=== PATIENT | male | born 1965 | race Caucasian/White ===

== ENCOUNTER 2019-02-21 10:51 | Emergency (ER) | payer SELFPAY ==
[~2019-02-21] VITALS: Wt 65.0 kg
[2019-02-21 10:54] VITALS: Wt 65.0 kg
[2019-02-21] MEDS ORDERED: OLANZAPINE 5 MG TAB PO ONE (12:30)
--- NOTE | 2019-02-21 14:00 | PSY ---
Date/Time of Note Date/Time of Note DATE: 02/21/19 TIME: 16:54 Psychiatric Subjective Eval Consent Pt consented to telemedicine: Yes Subjective Evaluation Patient location: emergency Chief Complaint: PT JUMPED OUT 2ND STORY WINDOW WITH KNIFE AND BAT, HALLUCINATIONS History of present illness HPI: 53 yo male (interview done with [place]de[place] pediatric speech language pathologist) with ho methamphetamine use, bib 911 after pt jumped out of 2nd story window with knife and bat in hand. pt reports "bandits" are after him and he was trying to flee from them. Says they are monitoring him via drone he has been "flashing light at it" which began today's incident. Nurse confirms hx from 911 and also reports that pt wrote "call 911" on the window. Pt also reports they broke into his house to get after him. Admits to using methamphetamine. Denies si. Past psych Hx: denies ho psych admits or suicide attempts PMHx: denies meds: none nkda MSE: casually groomed, cooperative, normal [place] speech, euthymic, restricted affect, somewhat disorganized, + delusions denies avh denies si/hi, poor insight Imp 53 yo male very psychotic to the point of being gravely disabled, unable to distinguish reality from psychosis to the point of jumping out of 2nd story 5150 psych admit For moderate agitation Zyprexa 5mg po prn For severe agitation chlorpromazine 25mg im prn Allergies: Coded Allergies: No Known Allergy (Unverified , 02/21/19) Psychiatric Objective Eval Mental Status Examination: Laboratory Results Laboratory Tests Test 02/21/19 11:40 02/21/19 11:54 White Blood Count 8.5 10^3/ul Red Blood Count 4.45 10^6/ul Hemoglobin 13.9 g/dl Hematocrit 41.0 % Mean Corpuscular Volume 92.1 fl Mean Corpuscular Hemoglobin 31.2 pg Mean Corpuscular Hemoglobin Concent 33.9 g/dl Red Cell Distribution Width 12.4 % Platelet Count 278 10^3/UL Mean Platelet Volume 9.1 fl Immature Granulocytes % 0.200 % Neutrophils % 74.7 % Lymphocytes % 16.8 % Monocytes % 6.8 % Eosinophils % 1.1 % Basophils % 0.4 % Nucleated Red Blood Cells % 0.0 /100WBC Immature Granulocytes # 0.020 10^3/ul Neutrophils # 6.4 10^3/ul Lymphocytes # 1.4 10^3/ul Monocytes # 0.6 10^3/ul Eosinophils # 0.1 10^3/ul Basophils # 0.0 10^3/ul Nucleated Red Blood Cells # 0.0 10^3/ul Sodium Level 141 mmol/L Potassium Level 3.8 mmol/L Chloride Level 107 mmol/L Carbon Dioxide Level 23 mmol/L Anion Gap 11 Blood Urea Nitrogen 20 mg/dl Creatinine 1.00 mg/dl Est Glomerular Filtrat Rate mL/min > 60 mL/min Glucose Level 93 mg/dl Calcium Level 9.7 mg/dl Total Bilirubin 0.9 mg/dl Direct Bilirubin 0.00 mg/dl Indirect Bilirubin 0.9 mg/dl Aspartate Amino Transf (AST/SGOT) 36 IU/L Alanine Aminotransferase (ALT/SGPT) 25 IU/L Alkaline Phosphatase 94 IU/L Total Protein 8.0 g/dl Albumin 4.7 g/dl Globulin 3.30 g/dl Albumin/Globulin Ratio 1.42 Salicylates Level < 1.0 mg/dl Acetaminophen Level < 10.0 ug/ml Ethyl Alcohol Level < 10.0 mg/dl Urine Color LAURA Urine Clarity SLIGHTLY CLOUDY Urine pH 5.0 Urine Specific [place] 1.029 Urine Ketones TRACE mg/dL Urine Nitrite NEGATIVE mg/dL Urine Bilirubin NEGATIVE mg/dL Urine Urobilinogen 1+ mg/dL Urine Leukocyte Esterase NEGATIVE Alix/ul Urine Microscopic RBC 3 /HPF Urine Microscopic WBC 1 /HPF Urine Squamous Epithelial Cells FEW /HPF Urine Mucus FEW /HPF Urine Hemoglobin NEGATIVE mg/dL Urine Glucose NEGATIVE mg/dL Urine Total Protein NEGATIVE mg/dl Urine Opiates Screen Negative Urine Barbiturates Negative Urine Amphetamines Screen POSITIVE Urine Benzodiazepines Screen Negative Urine Cocaine Screen Negative Urine Cannabinoids Negative Assessment and Plan Recommendation/Plan Multiple antipsychotics: No Discharge Disposition: Psychiatric inpatient Legal Status: Place involuntary hold GALINA PRIDE Feb 21, 2019 14:00
--- NOTE | 2019-02-21 14:04 | ERD ---
ER Documentation Chief Complaint Chief Complaint PT JUMPED OUT 2ND STORY WINDOW WITH KNIFE AND BAT, HALLUCINATIONS HPI This is a 53-year-old male with a history of amphetamine abuse who presents to the emergency room with [employer] for evaluation of suicidal ideation. A detailed history is unobtainable from the patient given his clinical condition. This patient was found to have jumped off of a second story patio at his living faci [facility] and I did have a knife on his possession, and a baseball on his possession. He denies any homicidal ideation at this time but that he has been feeling depressed and has been hearing voices that are telling him to kill himself. ROS All systems reviewed and are negative except as per history of present illness. Medications Home Meds Unable to Obtain Active Prescriptions or Reported Meds Allergies Allergies: Coded Allergies: No Known Allergy (Unverified , 02/21/19) PMhx/Soc Medical and Surgical Hx: pt denies Surgical Hx Hx Psychiatric Problems: Yes (paranoid shizophrenia) Hx Alcohol Use: No Hx Substance Use: Yes (crystal meth) Hx Tobacco Use: No Smoking Status: Light tobacco smoker Physical Exam Vitals Vital Signs Date Temp Pulse Resp B/P (MAP) Pulse Ox O2 O2 Flow FiO2 Time Delivery Rate 02/21/19 98.1 80 20 130/65 98 10:54 (86) Physical Exam INITIAL VITAL SIGNS: Reviewed by me GENERAL: The patient is disheveled in appearance HEENT: Dry mucous membranes, pupils equal, round, and reactive to light. EOMI. There is no scleral icterus. NECK: C-spine is soft and supple, there is no meningismus. There is no cervical lymphadenopathy. LUNGS: Clear to auscultation bilaterally. There are no rales, wheezes or rhonchi. HEART: Regular rate and rhythm, no murmurs, clicks, rubs or gallops. ABDOMEN: Soft, non-tender, non-distended. There are bowel sounds in all four quadrants. No rebound or guarding. EXTREMITIES: There is no peripheral cyanosis or edema. No focal swelling or erythema. NEUROLOGICAL: The patient moves all four extremities with 5/5 strength. Cranial nerves II - XII are intact. Normal gait. Alert and oriented SKIN: There is no apparent rash or petechiae. HEME/LYMPHATIC: There is no evidence of excessive bruising or lymphedema. PSYCHIATRIC: The patient appear to be agitated Result Diagram: 02/21/19 1140 02/21/19 1140 Results 24 hrs Laboratory Tests Test 02/21/19 11:40 02/21/19 11:54 White Blood Count 8.5 10^3/ul Red Blood Count 4.45 10^6/ul Hemoglobin 13.9 g/dl Hematocrit 41.0 % Mean Corpuscular Volume 92.1 fl Mean Corpuscular Hemoglobin 31.2 pg Mean Corpuscular Hemoglobin Concent 33.9 g/dl Red Cell Distribution Width 12.4 % Platelet Count 278 10^3/UL Mean Platelet Volume 9.1 fl Immature Granulocytes % 0.200 % Neutrophils % 74.7 % Lymphocytes % 16.8 % Monocytes % 6.8 % Eosinophils % 1.1 % Basophils % 0.4 % Nucleated Red Blood Cells % 0.0 /100WBC Immature Granulocytes # 0.020 10^3/ul Neutrophils # 6.4 10^3/ul Lymphocytes # 1.4 10^3/ul Monocytes # 0.6 10^3/ul Eosinophils # 0.1 10^3/ul Basophils # 0.0 10^3/ul Nucleated Red Blood Cells # 0.0 10^3/ul Sodium Level 141 mmol/L Potassium Level 3.8 mmol/L Chloride Level 107 mmol/L Carbon Dioxide Level 23 mmol/L Anion Gap 11 Blood Urea Nitrogen 20 mg/dl Creatinine 1.00 mg/dl Est Glomerular Filtrat Rate mL/min > 60 mL/min Glucose Level 93 mg/dl Calcium Level 9.7 mg/dl Total Bilirubin 0.9 mg/dl Direct Bilirubin 0.00 mg/dl Indirect Bilirubin 0.9 mg/dl Aspartate Amino Transf (AST/SGOT) 36 IU/L Alanine Aminotransferase (ALT/SGPT) 25 IU/L Alkaline Phosphatase 94 IU/L Total Protein 8.0 g/dl Albumin 4.7 g/dl Globulin 3.30 g/dl Albumin/Globulin Ratio 1.42 Salicylates Level < 1.0 mg/dl Acetaminophen Level < 10.0 ug/ml Ethyl Alcohol Level < 10.0 mg/dl Urine Color LAURA Urine Clarity SLIGHTLY CLOUDY Urine pH 5.0 Urine Specific [place] 1.029 Urine Ketones TRACE mg/dL Urine Nitrite NEGATIVE mg/dL Urine Bilirubin NEGATIVE mg/dL Urine Urobilinogen 1+ mg/dL Urine Leukocyte Esterase NEGATIVE Alix/ul Urine Microscopic RBC 3 /HPF Urine Microscopic WBC 1 /HPF Urine Squamous Epithelial Cells FEW /HPF Urine Mucus FEW /HPF Urine Hemoglobin NEGATIVE mg/dL Urine Glucose NEGATIVE mg/dL Urine Total Protein NEGATIVE mg/dl Urine Opiates Screen Negative Urine Barbiturates Negative Urine Amphetamines Screen POSITIVE Urine Benzodiazepines Screen Negative Urine Cocaine Screen Negative Urine Cannabinoids Negative Current Medications Medications Dose Sig/Gallito Start Time Status Last (Trade) Ordered Route PRN Stop Time Admin Dose Reason Admin Olanzapine 10 mg ONCE ONCE 02/21/19 DC 02/21/19 (Zyprexa) PO 12:30 02/21/19 13:27 12:31 Procedures/MDM This is a 53-year-old male presents the ER for evaluation of agitation after jumping off a second story patio to kill himself. The patient did state he smoked amphetamines 2 days ago and states that he is hearing voices telling him to kill himself. The patient did have a positive amphetamine screen in the ER. He was given Zyprexa for mild agitation. Lab work is within normal limits and he was evaluated by tele-psych he does recommend a 50 1 50 hold. The patient will be observed in the emergency room until we are able to find a facility who can accept this patient. Patient presents with symptomatology consistent with the decompensation of previously diagnosed psychiatric disease. Based on history, physical exam and appropriate lab tests, I appreciate no evidence of significant life-threatening injury or illness that includes a psychiatric hospitalization. Patient is thus "medically clear" for psychiatric admission. In regards to the psychiatric complaints, this patient has clear evidence of high risk psychiatric symptoms with significant risk for decompensation, thus requiring admission to the hospital for stabilization. Departure Diagnosis: Primary Impression: Suicide attempt Additional Impressions: Amphetamine abuse Auditory hallucinations Condition: SINCERE London DO Feb 21, 2019 14:04
--- NOTE | 2019-02-22 10:13 | EN ---
Date/Time of Note Date/Time of Note DATE: 02/22/19 TIME: 10:13 ER Progress Note Observation Note: Time: 4 hours Family Hx: No Hypertension Evaluation: Patient remains calm at this time with no signs of behavior escalation. We are still attempting to contact facilities to provide placement for this patient at this time. Patient has eaten food, no acute distress and no complaints at this time SINCERE SMALL DO Feb 22, 2019 10:13
--- NOTE | 2019-02-22 13:31 | PSY ---
Date/Time of Note Date/Time of Note DATE: 02/22/19 TIME: 16:31 Psychiatric Subjective Eval Consent Pt consented to telemedicine: Yes Subjective Evaluation Patient location: emergency Chief Complaint: PT JUMPED OUT 2ND STORY WINDOW WITH KNIFE AND BAT, HALLUCINATIONS Reason for consult: Hallucinatios History of present illness HPI: 53 yo male (interview done with slovenian russian language professor). Seen by this MD yesterday. Per that note, " with ho methamphetamine use, bib 911 after pt jumped out of 2nd story window with knife and bat in hand. pt reports "bandits" are after him and he was trying to flee from them. Says they are monitoring him via drone he has been "flashing light at it" which began today's incident. Nurse confirms hx from 911 and also reports that pt wrote "call 911" on the window. Pt also reports they broke into his house to get after him. Admits to using methamphetamine. Denies si. " MD saw pt agian today with slovenian russian language professor. Hx as above. Still very delusional and paranoid. No insight. Past psych Hx: denies ho psych admits or suicide attempts PMHx: denies meds: none nkda MSE: casually groomed, cooperative, normal slovenian speech, euthymic, restricted affect, somewhat disorganized, + delusions denies avh denies si/hi, poor insight Imp 53 yo male very psychotic to the point of being gravely disabled, unable to distinguish reality from psychosis to the point of jumping out of 2nd story 5150 psych admit For moderate agitation Zyprexa 5mg po prn For severe agitation chlorpromazine 25mg im prn Hospitalization: no Medical history Problems Medical Problems: (1) Amphetamine abuse Status: Acute (2) Auditory hallucinations Status: Acute (3) Suicide attempt Status: Acute Allergies: Coded Allergies: No Known Allergy (Unverified , 02/21/19) Social History DPA/Conservatorship: No Psychiatric Objective Eval Mental Status Examination: Laboratory Results Laboratory Tests Test 02/21/19 11:40 02/21/19 11:54 White Blood Count 8.5 10^3/ul Red Blood Count 4.45 10^6/ul Hemoglobin 13.9 g/dl Hematocrit 41.0 % Mean Corpuscular Volume 92.1 fl Mean Corpuscular Hemoglobin 31.2 pg Mean Corpuscular Hemoglobin Concent 33.9 g/dl Red Cell Distribution Width 12.4 % Platelet Count 278 10^3/UL Mean Platelet Volume 9.1 fl Immature Granulocytes % 0.200 % Neutrophils % 74.7 % Lymphocytes % 16.8 % Monocytes % 6.8 % Eosinophils % 1.1 % Basophils % 0.4 % Nucleated Red Blood Cells % 0.0 /100WBC Immature Granulocytes # 0.020 10^3/ul Neutrophils # 6.4 10^3/ul Lymphocytes # 1.4 10^3/ul Monocytes # 0.6 10^3/ul Eosinophils # 0.1 10^3/ul Basophils # 0.0 10^3/ul Nucleated Red Blood Cells # 0.0 10^3/ul Sodium Level 141 mmol/L Potassium Level 3.8 mmol/L Chloride Level 107 mmol/L Carbon Dioxide Level 23 mmol/L Anion Gap 11 Blood Urea Nitrogen 20 mg/dl Creatinine 1.00 mg/dl Est Glomerular Filtrat Rate mL/min > 60 mL/min Glucose Level 93 mg/dl Calcium Level 9.7 mg/dl Total Bilirubin 0.9 mg/dl Direct Bilirubin 0.00 mg/dl Indirect Bilirubin 0.9 mg/dl Aspartate Amino Transf (AST/SGOT) 36 IU/L Alanine Aminotransferase (ALT/SGPT) 25 IU/L Alkaline Phosphatase 94 IU/L Total Protein 8.0 g/dl Albumin 4.7 g/dl Globulin 3.30 g/dl Albumin/Globulin Ratio 1.42 Salicylates Level < 1.0 mg/dl Acetaminophen Level < 10.0 ug/ml Ethyl Alcohol Level < 10.0 mg/dl Urine Color LAURA Urine Clarity SLIGHTLY CLOUDY Urine pH 5.0 Urine Specific [place] 1.029 Urine Ketones TRACE mg/dL Urine Nitrite NEGATIVE mg/dL Urine Bilirubin NEGATIVE mg/dL Urine Urobilinogen 1+ mg/dL Urine Leukocyte Esterase NEGATIVE Alix/ul Urine Microscopic RBC 3 /HPF Urine Microscopic WBC 1 /HPF Urine Squamous Epithelial Cells FEW /HPF Urine Mucus FEW /HPF Urine Hemoglobin NEGATIVE mg/dL Urine Glucose NEGATIVE mg/dL Urine Total Protein NEGATIVE mg/dl Urine Opiates Screen Negative Urine Barbiturates Negative Urine Amphetamines Screen POSITIVE Urine Benzodiazepines Screen Negative Urine Cocaine Screen Negative Urine Cannabinoids Negative Assessment and Plan Recommendation/Plan Multiple antipsychotics: No Discharge Disposition: Psychiatric inpatient Legal Status: Place involuntary hold GALINA PRIDE Feb 22, 2019 13:31
[2019-02-22 18:49] VITALS: BP 120/68; PULSE 81; RESP 18
== END 2019-02-22 18:51 ==
LOC: E/R 10:51
DX: T14.91XA Suicide attempt, initial encounter (principal); R44.0 Auditory hallucinations; F17.210 Nicotine dependence, cigarettes, uncomplicated; X58.XXXA Exposure to other specified factors, initial encounter; Y92.9 Unspecified place or not applicable
CPT/HCPCS: 73562; 80053; 80307; 81001; 81003; 85025